=== PATIENT | male | born 1990 | race Caucasian/White ===

== ENCOUNTER 2025-03-17 11:12 | Emergency (ER) | payer BC, SELFPAY ==
--- OUTSIDE RECORDS SUMMARY | 2025-03-17 11:13 | XMS_ITS | Clinical Summary ---
Author Organization [facility] Address [address] [place] [id number] Care Team Providers Care Stakes Player Name Role Phone None Primary Care Provider Unavailabl e Allergies No known active allergies Medications naproxen (NAPROSYN) 500 mg tablet Take 1 tablet by mouth 2 times daily with meals. 50 tablet 0 10/11/2010 Active Active Problems Problem Noted Date Diagnosed Date Tear of medial cartilage or meniscus of knee, cu rrent 03/12/2010 Immunizations Immunization Administration Dates Next Due Hepatitis B (Peds) 07/17/2002 MMR 02/08/2002 Td (Age >=7 Years) 07/17/2002 Social History Tobacco Use Types Packs/Day Years Used Date Smoking Tobacco: Every Day Comments:chews 1 tin daily Alcohol Use Standard Drinks/Week Comments Yes 0 (1 standard drink = 0.6 oz pur e alcohol) rare Sex and Gender Information Value Date Recorded Sex Assigned at Not on file Legal Sex Male 6:59 AM [employer]ION[employer] Gender Identity Not on file Sexual Orientation Not on file Obstetrics History Last Filed Vital Signs Vital Sign Reading Time Taken Comments Blood Pressure 139/90 03/11/2019 10:35 PM CDT Pulse 94 03/11/2019 10:35 PM CDT Temperature 36.7 C (98.1 F) 03/11/2019 10:35 PM CDT Respiratory Rate 18 03/11/2019 10:3 5 PM CDT Oxygen Saturation 98% 03/11/2019 10: 35 PM CDT Inhaled Oxygen Concentration - - Weight 120.1 kg (264 lb 12.8 oz) 2018 10:35 PM CDT Height 188 cm (6' 2) 03/11/2019 10:35 PM CDT Body Mass Index 34 03/11/2019 10:35 PM CDT Plan of Treatment Not on file Insurance [facility] Member Subscriber Plan / Payer (Ef fective 2019-Present) Name:Boris Mae Relation to Subscriber:Self Name:Boris Mae Payer ID:Not on file Group ID:Not on file Type:Not on file Address: [employer] [id number] [place] [address] Care Teams Stakes Player Relationship Specialty Start Date End Date None . PCP - General 03/11/19
[2025-03-17 11:19] VITALS: BP 173/107; PULSE 70; RESP 18; TEMP 36.3; O2SAT 98; BMI 36.3
--- NOTE | 2025-03-17 12:08 | ED.GENADULT ---
HPI - General Adult General Chief complaint: Laceration/Wound Stated complaint: Left, hurt ear Time Seen by Provider: 03/17/25 11:19 History of Present Illness HPI narrative: Patient is a pleasant 34-year-old male who was working on his truck putting on a radiator and had the truck door slam on his left side of his head. Injured his left ear. He presents with a macerated left ear and bleeding. He is uncertain of his last tetanus. He this will be checked. He is hearing well, he has no head injury. Just basically is here. He has not had any infectious history in the past. He has no allergies to medications. Related Data Previous Rx's ?Medication ?Instructions ?Recorded cephalexin 500 mg capsule 500 mg PO QID 7 days #28 caps 03/17/25 Allergies Allergy/AdvReac Type Severity Reaction Status Date / Time No Known Drug Allergies Allergy Verified 03/17/25 11:19 Review of Systems Status of ROS: Reports: 6 or more systems reviewed and unremarkable except as noted in History and below Exam Narrative: Exam Narrative: Objective: Patient's vital signs show elevated blood pressure He is alert or x3 very pleasant in no distress HEENT otherwise unremarkable neck is supple nontender denies back or chest discomfort neurologic is nonfocal Careful inspection of the left ear shows complex laceration involving the an avulsion of skin over the mid auricle above the ear canal all the way from front to back, there is a laceration to the front part of the ear as well as through to the back and around the posterior aspect of the lateral auricle. There is a little bit of cartilaginous material posteriorly that I can visualize and this was irrigated in the entire ear was irrigated well. There does appear to be any arterial bleeding. Const: Vital Signs, click to edit/add: Vital Signs - 24 hr 03/17/25 11:19 Temperature 97.4 F L Pulse Rate [Pulse Oximeter] 70 Respiratory Rate 18 Blood Pressure [Ri ght Upper Arm] 173/107 H Pulse Oximetry 98 Oxygen Delivery Me thod Room Air Course Vital Signs Vital signs: Initial Vital Signs Temperature 97.4 F L 03/17/25 11:19 Temperature Source Temporal Artery Scan 03/17/25 11:19 Pulse Rate 70 03/17/25 11:19 Respiratory Rate 18 03/17/25 11:19 Blood Pressure 173/107 H 03/17/25 11:19 Blood Pressure Mean 129 H 03/17/25 11:19 Pulse Oximetry 98 03/17/25 11:19 Oxygen Delivery Method Room Air 03/17/25 11:19 Vital Signs Temperature 97.4 F L 03/17/25 11:19 Pulse Rate 70 03/17/25 11:19 Respiratory Rate 18 03/17/25 11:19 Blood Pressure 173/107 H 03/17/25 11:19 Pulse Oximetry 98 03/17/25 11:19 Oxygen Delivery Method Room Air 03/17/25 11:19 Temperature 97.4 F L 03/17/25 11:19 Pulse Rate 70 03/17/25 11:19 Respiratory Rate 18 03/17/25 11:19 Blood Pressure 173/107 H 03/17/25 11:19 Pulse Oximetry 98 03/17/25 11:19 Oxygen Delivery Method Room Air 03/17/25 11:19 Medications Administered Medications: Discontinued Medications Generic Name Dose Route Start Last Admin Trade Name Freq PRN Reason Stop Dose Admin Cephalexin HCl 500 mg 03/17/25 12:03 03/17/25 12:16 Cephalexin 500 Mg Capsule PO 03/17/25 12:04 500 mg ONCE ONE Administration Diphtheria/Tetanus/Acell Pertussis 0.5 ml 03/17/25 12:14 03/17/25 12:19 Tetanus/Diphth/Pertussis 0.5 Ml Syringe IM 03/17/25 12:15 0.5 ml .ONCE ONE Administration Medical Decision Making MDM Narrative Medical decision making narrative: 34-year-old male with injury to his left ear with a truck good. Procedure: After sterile irrigation and Shur-Clens irrigation, and 1% xylocaine injected for anesthesia without epinephrine, the wound was closed with 4-0 simple interrupted Ethilon sutures was able to get good skin edge approximation, was able to foot close the front end of the auricle anteriorly well-approximated as well as the posterior aspect put 1 stitch behind the ear as well posteriorly to the lateral auricle and then was able to sew the flap that was across the auricle itself both superior and inferiorly with multiple sutures. Good skin edge approximation good hemostasis family review there apparently felt was adequate. I had a discussion with the patient and his and they wished to not go see Plastic surgery at this time wished just to try and put together which I think we accomplished fairly well, I would recommend they see our ear nose and throat doctor in the next few days just for reassessment. They may want to see plastics at some point for repair. I will put him on Keflex 500 q.i.d. x5 days he can take Tylenol as needed for discomfort. Will keep the wound covered for the next 24 hours and then he could take at the bandage off and shower bathe normally. Would recommend follow-up as above, watch for redness infection return if worse problems or concerns. Will need suture removal in about 7 days Discharge Plan Discharge Clinical Impression: Laceration of ear, Complex laceration of ear Patient Disposition: Home w/ Parent or Adult Condition: Improved Additional Instructions: Light activity for a couple of days, recommend follow-up with our ENT doctor for reassessment. He may need to see Plastic surgery at your discretion. Keflex 500 q.i.d. x5 days may take Tylenol as needed for discomfort, keep covered tonight and tomorrow and then may soak off the bandage and shower and bathe normally. Watch for redness or infection, return if any problems or concerns. Will check on her tetanus status as well. To schedule follow up appointment call [phone] Activity Level: Light activity Discharge Diet: Regular Prescriptions: New cephalexin 500 mg capsule 500 mg PO QID 7 Days Qty: 28 0RF Follow Up/Referrals: Provider,Not a Local [Primary Care Provider, Family Practice] Stand Alone Forms: [facility] Info Instructions
[2025-03-17] MEDS: TETANUS/DIPHTH/PERTUSSIS 0.5 ML SYRINGE IM (12:19)
== END 2025-03-17 12:35 | disposition home or self-care (01) ==
PROVIDERS: Emergency Provider Family Medicine
DX: S01.312A Laceration without foreign body of left ear, initial encounter (principal); Z23 Encounter for immunization; W26.9XXA Contact with unspecified sharp object(s), initial encounter
CPT/HCPCS: 13151; 90471; 90715; 99283; 99284; A9270

== ENCOUNTER 2025-06-20 07:58 | Day surgery (SDC) | payer BC, SELFPAY ==
[2025-06-20] VITALS (11 sets, daily range): BP systolic 111–141; BP diastolic 75–89; PULSE 56–80; RESP 12–16; TEMP 36.3–37.2; O2SAT 94–97; BMI 34.0
[2025-06-20] MEDS: SODIUM CHLORIDE 0.9 % (FLUSH) 10 ML SYRINGE IVF (08:51)
[2025-06-20] MEDS: LACTATED RINGERS 1000 ML 1,000 ML 100 ML IV ×2 (08:51→10:42)
--- NOTE | 2025-06-20 09:11 | W.PM.H&PU ---
History & Physical Update History & Physical Update H&P Reviewed and patient assessed: No changes noted H&P Updates: Boris is here today for laparoscopic cholecystectomy and vasectomy. Since I saw him in clinic, LFTs were checked. ALT was mildly elevated at 59 but remainder of LFTs were within normal limits.
--- NOTE | 2025-06-20 09:13 | P.GSOP_ITS ---
Operative Note Date of procedure: 06/20/25 Pre-op diagnosis: 1. Biliary colic 2. Desire for permanent sterilization Post-op diagnosis: same Type of Procedure: 1. Laparoscopic cholecystectomy 2. Vasectomy Indications: The patient is a 35-year-old male who has had several years of right upper quadrant pain after eating fatty foods. Workup revealed gallstones. He did try to control his symptoms with diet however his symptoms have persisted. I recommended cholecystectomy and he agreed to proceed after discussion of risks and benefits. He also desires permanent sterilization. After discussion of risks and benefits of vasectomy, he agreed to proceed with this as well. Procedure Description: After discussing the risks and benefits of the procedure, the patient signed informed consent.? The operative site was marked and the patient was brought to the operating room and placed on the operating table in supine position.? Care was taken to pad the patient's pressure points.?? The patient was then intubated by anesthesia.?? The operative site was then prepped and draped in the usual sterile fashion.? A time-out was then performed. Entrance to the abdomen was gained via Choudhury technique just below the umbilicus. The fascia was grasped between 2 Doni clamps and incised. The peritoneum was then incised. A 10 mm port was then placed into the abdomen and the abdomen was insufflated. Three additional ports were then placed, these were 5 mm ports. One was placed in left upper quadrant, and 2 additional ports were placed in the right upper quadrant and right lateral abdomen along the costal margin. These were placed under direct vision.. The patient was then david maximiliano in reverse Trendelenburg position with the right side up. The gallbladder fundus was grasped and retracted cephalad. The infundibulum was grasped. A combination of hook cautery and blunt dissection was used to carefully dissect out the cystic duct and artery until they could clearly be seen entering the gallbladder without any intervening structures. The gallbladder was dissected off the cystic plate to achieve the critical view. Once this was achieved the cystic duct and artery were each clipped with 2 clips proximally and 1 clip distally and transected with the scissors. The gallbladder was then taken off of the liver bed and removed from the abdomen using an Endo-Catch bag. The gallbladder bed was surveyed for hemostasis which appeared adequate. A small amount of bile which had spilled was suctioned from the abdomen. The ports were then removed and the abdomen desufflated. The umbilical port fascia was closed with 0 Vicryl. The skin was closed with absorbable subcuticular suture. Sterile dressings were applied. And then began with the vasectomy. Using clean instruments and re-prepped ping and draping the area, I began on the right side. The spermatic cord was grasped and the vas deferens isolated. 1% lidocaine was injected into the scrotal skin and around the vas deferens. Once the skin was anesthetized, a stab incision was made overlying the vas. Blunt dissection was taken down to the vas. The vas deferens was then grasped and pulled out the incision. Careful dissection was then done to isolate a 3 cm segment of vas deferens from the surrounding blood vessels and tissue. Once this was done the vas was clipped proximally and distally and sharply transected with scissors. This was passed off for pathology. The mucosal ends were cauterized. The wound was examined for hemostasis which was adequate. The same procedure was then performed on the left, again isolating a 3 cm segment of vas deferens and sending for pathology. Gauze dressings were then applied. Instrument sponge and needle counts were correct at the end of the case. The patient was then woken and transported to the recovery area in stable condition. ? The patient tolerated the procedure well. Findings: Gallstones in the gallbladder Surgeon: Shanda Messina MD Estimated blood loss (mL): 5 Specimen: Other Additional Specimen Information: 1. Gallbladder 2. Right vas deferens 3. Left vas deferens Condition: stable Disposition: PACU
--- NOTE | 2025-06-20 11:25 | P.ANES_ITS ---
Anesthesia Charges Start Date/Time Anesthesia Start Date: 06/20/25 Anesthesia Start Time: 09:31 Stop Date/Time Anesthesia Stop Date: 06/20/25 Anesthesia Stop Time: Coding CPT Codes CPT Codes: ANESTH SURG UPPER ABDOMEN - 73851 ([id number]) P2 - PATIENT W/MILD SYST DISEASE, QK - GLAZIER HELPER 2-4 CNCRNT ANES PROC, QX - WHISKEY REGAUGER SVC W/ MD MED DIRECTION
--- NOTE | 2025-06-20 11:25 | W.ANESCHARGE ---
Anesthesia Charges Start Date/Time Anesthesia Start Date: 06/20/25 Anesthesia Start Time: 09:31 Stop Date/Time Anesthesia Stop Date: 06/20/25 Anesthesia Stop Time: Coding CPT Codes CPT Codes: ANESTH SURG UPPER ABDOMEN - 66269 ([id number]) P2 - PATIENT W/MILD SYST DISEASE, QK - AIRCRAFT MECHANIC 2-4 CNCRNT ANES PROC, QX - PROGRAMMER OR ANALYST SVC W/ MD MED DIRECTION
[2025-06-20] MEDS: HYDROCODONE-ACETAMIN 5-325 MG 1 TAB PO (12:05)
[2025-06-20] MEDS: ACETAMINOPHEN 325 MG TABLET 650 MG PO (12:05)
--- NOTE | 2025-06-20 13:02 | P.ANES_ITS ---
Anesthesia Charges Start Date/Time Anesthesia Start Date: 06/20/25 Anesthesia Start Time: 09:31 Stop Date/Time Anesthesia Stop Date: 06/20/25 Anesthesia Stop Time: Coding CPT Codes CPT Codes: ANESTH SURG UPPER ABDOMEN - 81020 ([id number]) P2 - PATIENT W/MILD SYST DISEASE, QK - MACHINE BURRER 2-4 CNCRNT ANES PROC, QX - [employer] SOUNDINGS GROUP LEADER SVC W/ MD MED DIRECTION
--- NOTE | 2025-06-20 13:02 | W.ANESCHARGE ---
Anesthesia Charges Start Date/Time Anesthesia Start Date: 06/20/25 Anesthesia Start Time: 09:31 Stop Date/Time Anesthesia Stop Date: 06/20/25 Anesthesia Stop Time: Coding CPT Codes CPT Codes: ANESTH SURG UPPER ABDOMEN - 78426 ([id number]) P2 - PATIENT W/MILD SYST DISEASE, QK - CARD TAPE CONVERTER OPERATOR 2-4 CNCRNT ANES PROC, QX - JAVA WEB SERVICES DEVELOPER SVC W/ MD MED DIRECTION
== END 2025-06-20 13:08 | disposition home or self-care (01) ==
PROVIDERS: PCP Student in an Organized Health Care Education/Training Program; Visit Provider Surgery
PROC: 0FT44ZZ Resection of Gallbladder, Percutaneous Endoscopic Approach (ICD-10-PCS; CPT 47562; principal; 2025-06-20 09:15)
PROC: (CPT 55250; 2025-06-20 09:15)
DX: K80.20 Calculus of gallbladder without cholecystitis without obstruction (principal); Z30.2 Encounter for sterilization
CPT/HCPCS: 47562; 55250; 00790; A9270; J0330; J0690; J2250; J2704; J3010; J3490; J7120